=== PATIENT | female | born 1935 | race Caucasian/White ===

== ENCOUNTER 2020-11-28 14:16 | Emergency (ER) | payer MEDICARE ==
[2020-11-28] MEDS ORDERED: TETRACAINE 0.5% OPHTH DROPS 4 ML EACHEYE ONE (14:32)
[2020-11-28 14:57] VITALS: BP 153/79
--- NOTE | 2020-11-28 15:37 | ED Physician Documentation ---
History of Present Illness - Stated complaint Stated Complaint: RT EYE INJ - Chief complaint Chief Complaint: Trauma Hd/Nk - History obtained from History obtained from: Patient - Additonal information Additional information: 85-year-old woman not on blood thinners presents status post mechanical fall yesterday down three stairs. She states that she woke up in the night and it was dark and she tripped, falling onto her right forehead and face. She had subsequent right knee, shoulder and eye pain. The next morning her eye was swollen shut and she had mild bleeding to the lateral right eye. neck is also hurting her. Denies LOC. Denies other injury. Review of Systems Eyes: reports: Other (swelling) Skin: reports: Laceration (s) (lac to R lateral eye) Musculoskeletal: reports: Neck pain, Extremity pain, Joint pain Neurologic: reports: Head injury. denies: LOC PD PAST MEDICAL HISTORY - Allergies Allergies/Adverse Reactions: Allergies Allergy/AdvReac Type Severity Reaction Status Date / Time No Known Drug Allergies Allergy Verified 11/28/20 14:57 PD ED PE NORMAL - Vitals Vital signs reviewed: Yes - General General: Alert and oriented X 3, No acute distress, Well developed/nourished - HEENT HEENT: Atraumatic, PERRL, EOMI, Moist mucous membranes, Other (R forehead hematoma. R periorbital ecchymosis. 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, No motor deficit, No sensory deficit, Normal speech - Psych Psych: Normal mood, Normal affect Results - Vitals Vitals: Vital Signs - 24 hr 11/28/20 14:45 Temperature 36.6 C Heart Rate 90 Respiratory 16 Rate Blood Pressure 153/79 H O2 Saturation 99 Oxygen O2 Source Room air Procedures - Laceration (location) Face right Length in cm: 0.2 Wound type: Linear, Superficial, Clean Neurovascular status: Sensory intact, Motor intact Wound preparation: Other (irrigated with water) Skin layer closure: Dermabond Other: Patient tolerated well, No complications, Tetanus UTD PD MEDICAL DECISION MAKING - ED course ED course: 85-year-old woman presents status post mechanical fall down three stairs. Tetanus up-to-date. Laceration repaired with glue. Will obtain CTs to evaluate for traumatic injury. Departure - Departure Disposition: 01 Home, Self Care Clinical Impression: Fall down steps, Ecchymosis of eye Condition: Good Instructions: ED Laceration All, Falls Risks Prevent, Falls Change Living Space Comments: You were seen in the emergency department for a small laceration to your right eye just to the right of the eye that was cleaned and secured with Dermabond, of glue material. Monitor for any signs of infection. Your tetanus is up-to-date so we did not give you a tetanus shot. Your CT of your head, neck, and face were normal. Please follow-up with your primary doctor. Return if you have any new or worsening symptoms or other concerns.
--- NOTE | 2020-11-28 16:08 | XRAY Report ---
PROCEDURE: Knee 2 View RT INDICATIONS: pain s/p fall TECHNIQUE: 2 views of the right knee(s) were acquired. COMPARISON: None. FINDINGS: Bones: No fractures or dislocations. No suspicious bony lesions. Mild tricompartmental osteoarthrit is. Soft tissues: No joint effusion. No suspicious soft tissue calcifications. IMPRESSION: No fracture. No acute osseous lesion. If there persistent symptoms or continued clinical concern for pathology, then repeat plain film radiographs (7-10 days) or advanced imaging (CT, MR, bone scan) elza uld be considered for further evaluation. Reviewed by: Ena Barrera MD, PhD on 11/28/2020 4:06 PM PDT Approved by: Ena Barrera MD, PhD on 11/28/2020 4:06 PM PDT Station ID: [id number]
--- NOTE | 2020-11-28 16:09 | XRAY Report ---
PROCEDURE: Shoulder 3 View RT INDICATIONS: fall down 3 stairs with pain TECHNIQUE: 3 views of the shoulder were acquired. COMPARISON: None. FINDINGS: Bones: No fractures or dislocations. No suspicious bony lesions. Visualized ribs appear intact. 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 Soft tissues: No suspicious soft tissue calcifications. Surgical clips in the right breast. IMPRESSION: No fracture. No acute osseous lesion. If there persistent symptoms or continued clinical concern for pathology, then repeat plain film radiographs (7-10 days) or advanced imaging (CT, MR, bone scan) elza uld be considered for further evaluation. Reviewed by: Ena Barrera MD, PhD on 11/28/2020 4:08 PM PDT Approved by: Ena Barrera MD, PhD on 11/28/2020 4:08 PM PDT Station ID: [id number]
--- NOTE | 2020-11-28 16:12 | CT Report ---
PROCEDURE: HEAD WO INDICATIONS: fall down 3 starirs TECHNIQUE: Noncontrast 4.5 mm thick angled axial sections acquired from the foramen magnum to the vertex. For r adiation dose reduction, the following was used: automated exposure control, adjustment of mA and/or kV according to patient size. COMPARISON: None. FINDINGS: Image quality: Excellent. CSF spaces: Basal cisterns are patent. No extra-axial fluid collections. Ventricles are normal in size and shape. Brain: No midline shift. No intracranial masses or hemorrhage. Castle-white matter interface is norm al. Skull and face: Calvarium and visualized facial bones are intact, without suspicious lesions. Large right periorbital facial and right frontal scalp hematoma. Sinuses: Visualized sinuses and mastoids are clear. IMPRESSION: 1. No acute intracranial disease process. 2. No intracranial hemorrhage. 3. No fracture. 4. Large right frontal scalp and right periorbital facial soft tissue hematoma. Reviewed by: Ena Barrera MD, PhD on 11/28/2020 4:11 PM PDT Approved by: Ena Barrera MD, PhD on 11/28/2020 4:11 PM PDT Station ID: [id number]
--- NOTE | 2020-11-28 16:16 | CT Report ---
PROCEDURE: MAXILLOFACIAL WO INDICATIONS: fall down stairs TECHNIQUE: Noncontrast 1.5 mm thick axial images acquired from the mandible through the frontal sinuses, with co chase and sagittal reformatting. For radiation dose reduction, the following was used: automated ex posure control, adjustment of mA and/or kV according to patient size. COMPARISON: None. FINDINGS: Image quality: Excellent. Bones and teeth: Orbital marcelo are intact. Sinus marcelo show no fracture or deformity. Nasal bones and septum are intact. Visualized portions of the mandible demonstrate no fractures or subluxation. Large torus mandibularis noted. Zygomatic arches are intact. Pterygoid plates are intact. Visualize d portions of the skull base and auditory canals are intact. Sinuses: Mild mucosal thickening noted in the maxillary sinuses. Mastoid air cells are aerated. Soft tissues: Large right peripheral facial and right scalp soft tissue hematoma. No enlarged lymph n odes. No soft tissue lacerations or debris. Vascular: Visualized vascular structures appear normal in the absence of contrast. Bony vascular fo ramina and canals are intact. IMPRESSION: No fracture. Reviewed by: Ena Barrera MD, PhD on 11/28/2020 4:15 PM PDT Approved by: Ena Barrera MD, PhD on 11/28/2020 4:15 PM PDT Station ID: [id number]
--- NOTE | 2020-11-28 16:20 | CT Report ---
PROCEDURE: CERVICAL SPINE WO INDICATIONS: fall down stairs with neck pain TECHNIQUE: Noncontrast 3 mm thick sections acquired from the skull base to the T4 level. Sagittal and coronal r eformats were then constructed. For radiation dose reduction, the following was used: automated exp osure control, adjustment of mA and/or kV according to patient size. COMPARISON: None. FINDINGS: Image quality: Degraded by patient motion artifact. Bones: No fractures or dislocations. Visualized superior ribs are intact. Spine degenerative disc d isease and facet arthropathy are noted. Soft tissues: Prevertebral soft tissues are normal in thickness. No paravertebral hematomas. Subcen timeter left thyroid nodule. No apical pneumothoraces. IMPRESSION: No fracture. No acute osseous lesion. If there is continued clinical concern for pathology, then MRI should be considered for further evaluation. Reviewed by: Ena Barrera MD, PhD on 11/28/2020 4:19 PM PDT Approved by: Ena Barrera MD, PhD on 11/28/2020 4:19 PM PDT Station ID: [id number]
== END 2020-11-28 16:22 | disposition home or self-care (01) ==
LOC: ED 14:16
DX: S05.11XA Contusion of eyeball and orbital tissues, right eye, initial encounter (principal); W18.30XA Fall on same level, unspecified, initial encounter
CPT/HCPCS: 12011; 99281; 99284